=== PATIENT | female | born 2000 | race Caucasian/White ===

== ENCOUNTER 2022-04-20 20:08 | Emergency (ER) | payer MEDICAID ==
--- NOTE | 2022-04-20 20:14 | ERPHSYRPT ---
- History of Present Illness Time Seen by Provider: 04/20/22 20:13 Source: patient Exam Limitations: no limitations Physician History: This is a 21-year-old white female who woke up this morning with a sore throat. Throughout the day the swallowing became more painful. When she looked in the mirror she could see her tonsils swollen on both sides with the right side being worse than the left. She pressed on the right tonsil and there was fibrinous exudate and pus from the site. She therefore came into the emergency department for evaluation management. Patient is not short of breath. She is not having any stridor. She has no chest pain. She has had tonsillitis in the past but it is been several years. She has no known drug allergies. Timing/Duration: today Cough Quality/Degree: no cough Possible Cause: no prior episodes Associated Symptoms: sore throat, No fever, No chills Allergies/Adverse Reactions: No Known Drug Allergies Allergy (Unverified 04/20/22 20:26) Travel Risk - International Travel Have you traveled outside of the country in past 3 weeks: No - Coronavirus Screening Are you exhibiting any of the following symptoms?: No Close contact with a COVID-19 positive Pt in past 14-21 Days: No - Review of Systems Constitutional: No Symptoms Eyes: No Symptoms Ears, Nose, & Throat: Throat Pain (When swallowing), Painful Swallowing Respiratory: No Symptoms Cardiac: No Symptoms Abdominal/Gastrointestinal: No Symptoms Genitourinary Symptoms: No Symptoms Musculoskeletal: No Symptoms Skin: No Symptoms Neurological: No Symptoms Psychological: No Symptoms Endocrine: No Symptoms Hematologic/Lymphatic: No Symptoms Immunological/Allergic: No Symptoms All Other Systems: Reviewed and Negative - Past Medical History Pertinent Past Medical History: Yes - Past Surgical History Past Surgical History: Yes - Nursing Vital Signs Nursing Vital Signs: Initial Vital Signs Temperature 98.5 F 04/20/22 20:27 Pulse Rate 94 H 04/20/22 20:27 Respiratory Rate 18 04/20/22 20:27 Blood Pressure 125/84 04/20/22 20:27 O2 Sat by Pulse Oximetry 98 04/20/22 20:27 Pain Scale Pain Intensity 6 - Physical Exam General Appearance: no apparent distress, alert, anxiety Eye Exam: PERRL/EOMI, eyes nml inspection Ears, Nose, Throat Exam: moist mucous membranes, tonsillar exudate (Bilateral. Right greater swelling than left. Tonsils are not closely approximated) Neck Exam: normal inspection, non-tender, supple, full range of motion Respiratory Exam: normal breath sounds, lungs clear, airway intact, No chest tenderness, No respiratory distress Cardiovascular Exam: regular rate/rhythm, normal heart sounds, normal peripheral pulses Gastrointestinal/Abdomen Exam: No tenderness Pelvic Exam: deferred Rectal Exam: not done Back Exam: normal inspection, normal range of motion, No CVA tenderness, No vertebral tenderness Extremity Exam: normal inspection, normal range of motion, pelvis stable Neurologic Exam: alert, oriented x 3, cooperative, 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, normal mood/affect, nml cerebellar function, nml station & gait, sensation nml Skin Exam: normal color, warm, dry Lymphatic Exam: No adenopathy SpO2 Interpretation: normal O2 Delivery: Room Air - Course Nursing assessment & vital signs reviewed: Yes Ordered Tests: Medication Summary Discontinued Medications Generic Name Dose Route Start Last Admin Trade Name Freq PRN Reason Stop Dose Admin Hydrocodone Bitart/Acetaminophen 10 ml 04/20/22 20:39 04/20/22 20:47 Hydrocodone/Acetaminophen 5 Ml Udcup PO 04/20/22 20:40 10 ml STAT STA Administration Hydrocodone Bitart/Acetaminophen Confirm 04/20/22 20:46 Hydrocodone/Acetaminophen 5 Ml Udcup Administered 04/20/22 20:47 Dose 10 ml .ROUTE .STK-MED ONE Ceftriaxone Sodium 1,000 mg 04/20/22 20:39 04/20/22 20:46 Ceftriaxone Sodium 1000 Mg Inj Vial IM 04/20/22 20:40 1,000 mg STAT ONE Administration Ceftriaxone Sodium Confirm 04/20/22 20:46 Ceftriaxone Sodium 1000 Mg Inj Vial Administered 04/20/22 20:47 Dose 1,000 mg .ROUTE .STK-MED ONE Methylprednisolone Sodium 0 mg 04/20/22 20:39 04/20/22 20:47 Succinate 125 mg/ Sterile IM 04/20/22 20:40 125 mg Water 2 ml STAT ONE Administration Methylprednisolone Sodium Succinate Confirm 04/20/22 20:46 Methylprednis Sod Succ 125 Mg/2 Ml Vial Administered 04/20/22 20:47 Dose 125 mg .ROUTE .STK-MED ONE Sterile Water Confirm 04/20/22 20:45 Water For Injection,Sterile 10 Ml Vial Administered 04/20/22 20:46 Dose 10 ml IJ .STK-MED ONE - Progress Progress: unchanged Air Movement: good Blood Culture(s) Obtained: No Antibiotics given: Yes Counseled pt/family regarding: diagnosis, need for follow-up - Departure Departure Disposition: Home Clinical Impression: Tonsillitis with exudate Condition: Stable Critical Care Time: No Instructions: Sore Throat, Adult (DC) Additional Instructions: Drink plenty of cool liquids. Take your medication as prescribed. Follow-up w ith your primary care physician for further evaluation and management. Prescriptions: Hydrocodone/Acetaminophen [Hydrocodone-Acetamn 7.5-325/15] 10 ml PO Q8H PRN PRN #120 ml MDD 30 ml PRN Reason: Cough Prednisone 10 mg [Deltasone 10 mg] 10 mg PO TID #12 tablet Azithromycin 250 mg [Zithromax 250 MG TABLET] 250 mg PO ZPACK #6 tablet
[2022-04-20 20:41] VITALS: PULSE 94
[2022-04-20] MEDS ORDERED: Sterile H2O 10 ml IJ ONE (20:45)
[2022-04-20] MEDS ORDERED: solu-MEDROL ONE (20:46)
[2022-04-20] MEDS ORDERED: HYDROCODONE-ACETAMIN 2.5-108/5 ML SOLUTION ONE (20:46)
[2022-04-20] MEDS ORDERED: Rocephin 1000 MG INJ ONE (20:46)
[2022-04-20] MEDS: Rocephin 1000 MG INJ IM ONE (20:46)
[2022-04-20] MEDS: HYDROCODONE-ACETAMIN 2.5-108/5 ML SOLUTION PO STA (20:47)
[2022-04-20] MEDS: solu-MEDROL 125 MG, Sterile H2O 10 ml 2 ML IM ONE ×2 (20:47)
[2022-04-20 21:02] VITALS: BP 130/94; O2SAT 99
== END 2022-04-20 21:18 | disposition home or self-care (01) ==
LOC: ED 20:08
DX: J03.90 Acute tonsillitis, unspecified (principal); Z79.891 Long term (current) use of opiate analgesic; Z79.52 Long term (current) use of systemic steroids
CPT/HCPCS: 96372; 99283; J0696; J2930; A9270-GY

== ENCOUNTER 2022-06-10 15:58 | Emergency (ER) | payer MEDICAID, OTHER ==
[2022-06-10 16:19] VITALS: O2SAT 97
[2022-06-10 16:42] LABS: Group A Strep DETECTED (NEGATIVE)
--- NOTE | 2022-06-10 16:52 | ERPHSYRPT ---
- History of Present Illness Source: patient Exam Limitations: no limitations Patient Subjective Stated Complaint: sore throat- Covid symptoms Triage Nursing Assessment: Patient ambulated back to ED and transferred self to bed. Patient A+O X 3. Patient's skin flushed, warm and dry. Patient complains of cough, diarrhea, headache, sore throat, bodyaches and fatigue for 3 days. Patient states she has been exposed to someone with Covid. Physician History: 21 yo wf w cough/coryza/ST/Diarrhea/BAINS wo fever/N/V/D/dysuria/hematuria/. Timing/Duration: gradual onset Severity: mild ENT Location: nose, mouth, throat Prearrival Treatment: no prearrival treatment Modifying Factors: Improves With: nothing Associated Symptoms: cough, headache, nasal congestion/drainage, sore throat, No ear pain (R), No ear pain (L), No fever, No chills, No change in hearing, No dizziness, No drooling, No ear drainage, No facial pain/swelling, No hearing loss, No jaw pain, No malaise, No motion sickness, No epistaxis, No nasal foreign body, No neck pain, No poor fluid intake, No poor solids intake, No ring ing of ears, No swollen glands, No sinus infection, No tooth pain, No difficulty swallowing, No voice change Allergies/Adverse Reactions: No Known Drug Allergies Allergy (Verified 06/10/22 16:11) Hx Tetanus, Diphtheria Vaccination/Date Given: Yes Hx Influenza Vaccination/Date Given: No Hx Pneumococcal Vaccination/Date Given: No Immunizations Up to Date: Yes Travel Risk - International Travel Have you traveled outside of the country in past 3 weeks: No - Coronavirus Screening Are you exhibiting any of the following symptoms?: Yes Symptoms: Cough: New Onset, Headaches/Body Aches/Fatigue Close contact with a COVID-19 positive Pt in past 14-21 Days: Yes - Vaccine Status Have you recieved a Covid-19 vaccination: No - Review of Systems Constitutional: No Symptoms Eyes: No Symptoms Ears, Nose, & Throat: No Symptoms, Nose Pain, Nose Congestion, Throat Pain, Throat Swelling, No Epistaxis, No Mouth Pain, No Mouth Swelling, No Loose Teeth, No Hoarse, No Painful Swallowing, No Snoring, No Stridor Respiratory: No Symptoms, Cough Cardiac: No Symptoms Abdominal/Gastrointestinal: No Symptoms Genitourinary Symptoms: No Symptoms Musculoskeletal: No Symptoms Skin: No Symptoms Neurological: No Symptoms Psychological: No Symptoms Endocrine: No Symptoms Hematologic/Lymphatic: No Symptoms Immunological/Allergic: No Symptoms - Past Medical History Pertinent Past Medical History: Yes Neurological History: Seizures GI Medical History: Hernia - Past Surgical History Past Surgical History: Yes Gastrointestinal: Hernia Repair - Social History Smoking Status: Current every day smoker How long have you smoked: years Exposure to second hand smoke: Yes Drug Use: marijuana Patient Lives Alone: Yes - Female History Hx Last Menstrual Period: currently Hx Now: No - Nursing Vital Signs Nursing Vital Signs: Initial Vital Signs Temperature 99.0 F 06/10/22 16:13 Pulse Rate 96 H 06/10/22 16:13 Respiratory Rate 18 06/10/22 16:13 Blood Pressure 120/81 06/10/22 16:13 O2 Sat by Pulse Oximetry 97 06/10/22 16:13 Pain Scale Pain Intensity 5 WNL - Physical Exam General Appearance: no apparent distress Eye Exam: bilateral eye: normal inspection, PERRL, EOMI Ear Exam: bilateral ear: auricle normal, canal normal, TM normal Nasal Exam: normal inspection Throat Exam: normal, pharynx normal Neck Exam: normal inspection, non-tender, supple, full range of motion, trachea midline, No JVD, No Brudzinski's sign, No Kernig's sign Cardiovascular/Respiratory Exam: normal breath sounds, regular rate/rhythm, heart sounds normal Abdominal Exam: non-tender, soft Neurologic Exam: alert, oriented x 3, cooperative, 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, normal mood/affect, nml cerebellar function, nml station & gait, sensation nml Skin Exam: normal color, warm, dry, No rash SpO2 Interpretation: normal SpO2: 97 O2 Delivery: Room Air - Course Nursing assessment & vital signs reviewed: Yes Lab/Rad Data: Laboratory Results 06/10/22 Range/Units 16:18 Influenza Type A Ag NEGATIVE (NEGATIVE) Influenza Type B Ag NEGATIVE (NEGATIVE) RSV (PCR) NEGATIVE (Negative) SARS-CoV-2 (PCR) POSITIVE A (NEGATIVE) Group A Strep Antibody DETECTED (NEGATIVE) - Departure Departure Disposition: Home Clinical Impression: Strep pharyngitis, COVID-19 Condition: Stable Critical Care Time: No Referrals: HENRIK ATWOOD DO [Primary Care Provider] - Follow up/PCP as directed Instructions: Strep Throat (DC), COVID-19 (DC) Additional Instructions: Quarantine for 5 days Penicillin three times a day for 10 days Paxlovid 3 tabs twice a day for 5 days Follow up with your family MD Return to ER as needed Prescriptions: Nirmatrelvir/Ritonavir [Paxlovid 2X150 mg-100 mg (Eua)] 1 each PO BID 5 Days #30 tablet Penicillin V Potassium 500 mg PO TID 10 Days #30 tablet
[2022-06-10 16:55] LABS: INFLUENZA A NEGATIVE (NEGATIVE); INFLUENZA B NEGATIVE (NEGATIVE); RESPIRATORY SYNCTIAL VIRUS NEGATIVE (Negative)
[2022-06-10 16:58] LABS: SARS-CoV-2 Xpert Express POSITIVE (NEGATIVE)
[2022-06-10 17:11] VITALS: BP 116/77; PULSE 88
== END 2022-06-10 17:10 | disposition home or self-care (01) ==
LOC: ED 15:58
DX: U07.1 COVID-19 (principal); J02.0 Streptococcal pharyngitis; B95.0 Streptococcus, group A, as the cause of diseases classified elsewhere; R05.9 Cough, unspecified; R09.81 Nasal congestion; R19.7 Diarrhea, unspecified; R51.9 Headache, unspecified; Z72.0 Tobacco use; Z28.310 Unvaccinated for COVID-19
CPT/HCPCS: 0241U; 87651; 99282

== ENCOUNTER 2022-08-26 09:40 | Emergency (ER) | payer OTHER ==
[2022-08-26] MEDS ORDERED: TORAdol 30 mg Injection IM ONE (09:57)
[2022-08-26 09:58] VITALS: O2SAT 98
--- NOTE | 2022-08-26 10:02 | ERPHSYRPT ---
- History of Present Illness Time Seen by Provider: 08/26/22 09:58 Historian: patient Exam Limitations: no limitations Patient Subjective Stated Complaint: C/O right flank pain Triage Nursing Assessment: Patient ambulated back to ED. No SOB. She is alert and oriented. No skin alterations noted to right side of back or abdomen. Abdomen is soft and non-tender. Bowel sounds present. Physician History: Pt has right flank pain today with hx of recurring UTIs but none like this before. No abd pain, No discharge, No N or V. No reported fever. taking diet and fluids OK. Abd soft nontender without peritoneal signs or masses. No hx of trauma. Timing/Duration: today Activities at Onset: none Quality: sharpness, throbbing Abdominal Pain Onset Location: flank Pain Radiation: flank Severity of Pain-Max: moderate Severity of Pain-Current: moderate Modifying Factors: Improves With: nothing Associated Symptoms: denies symptoms Previous symptoms: different symptoms Allergies/Adverse Reactions: No Known Drug Allergies Allergy (Verified 08/26/22 09:49) Hx Tetanus, Diphtheria Vaccination/Date Given: Yes Hx Influenza Vaccination/Date Given: No Hx Pneumococcal Vaccination/Date Given: No Immunizations Up to Date: Yes Travel Risk - International Travel Have you traveled outside of the country in past 3 weeks: No - Coronavirus Screening Are you exhibiting any of the following symptoms?: No Close contact with a COVID-19 positive Pt in past 14-21 Days: No - Vaccine Status Have you recieved a Covid-19 vaccination: No - Review of Systems Constitutional: No Fever, No Chills Eyes: No Symptoms Ears, Nose, & Throat: No Symptoms Respiratory: No Cough, No Dyspnea Cardiac: No Chest Pain, No Edema, No Syncope Abdominal/Gastrointestinal: No Abdominal Pain, No Nausea, No Vomiting, No Diarrhea Genitourinary Symptoms: Flank Pain, No Dysuria Musculoskeletal: No Back Pain, No Neck Pain Skin: No Rash Neurological: No Dizziness, No Focal Weakness, No Sensory Changes Psychological: No Symptoms Endocrine: No Symptoms Hematologic/Lymphatic: No Symptoms Immunological/Allergic: No Symptoms All Other Systems: Reviewed and Negative - Past Medical History Pertinent Past Medical History: Yes Neurological History: Seizures Respiratory History: Other GI Medical History: Hernia Other Medical History: COVID-19 in June 2022 - Past Surgical History Past Surgical History: Yes Gastrointestinal: Hernia Repair - Social History Smoking Status: Current every day smoker How long have you smoked: 2 years Exposure to second hand smoke: Yes Drug Use: marijuana Patient Lives Alone: Yes - Female History Hx Last Menstrual Period: 07/31-08/06 Hx Now: No - Nursing Vital Signs Nursing Vital Signs: Initial Vital Signs Temperature 98.2 F 08/26/22 09:50 Pulse Rate 102 H 08/26/22 09:50 Respiratory Rate 18 08/26/22 09:50 Blood Pressure 124/75 08/26/22 09:50 O2 Sat by Pulse Oximetry 98 08/26/22 09:50 Pain Scale Pain Intensity 6 - Physical Exam General Appearance: no apparent distress, alert Eye Exam: PERRL/EOMI, eyes nml inspection Ears, Nose, Throat Exam: normal ENT inspection, pharynx normal, moist mucous membranes Neck Exam: normal inspection, non-tender, supple, full range of motion Respiratory Exam: normal breath sounds, lungs clear, No respiratory distress Cardiovascular Exam: regular rate/rhythm, normal heart sounds Gastrointestinal/Abdomen Exam: soft, No tenderness, No distention, No mass, No guarding Pelvic Exam: deferred Rectal Exam: deferred Back Exam: normal inspection, normal range of motion, No CVA tenderness, No vertebral tenderness Extremity Exam: normal inspection, normal range of motion, pelvis stable Neurologic Exam: alert, oriented x 3, cooperative, normal mood/affect, nml cerebellar function, sensation nml, No motor deficits Skin Exam: normal color, warm, dry SpO2 Interpretation: normal SpO2: 98 O2 Delivery: Room Air - Course Nursing assessment & vital signs reviewed: Yes Ordered Tests: Active Orders 24 hr Category Date Time Status CBC W DIFF Stat Lab 08/26/22 10:05 Completed CMP Stat Lab 08/26/22 10:05 Completed CULTURE,URINE Stat Lab 08/26/22 10:00 Received HCG QUALITATIVE,SERUM Stat Lab 08/26/22 10:05 Completed UA W/RFX CULTURE Stat Lab 08/26/22 10:00 Completed Medication Summary Discontinued Medications Generic Name Dose Route Start Last Admin Trade Name Freq PRN Reason Stop Dose Admin Ketorolac Tromethamine 60 mg 08/26/22 09:57 08/26/22 10:08 Ketorolac Tromethamine 30 Mg/Ml Inj IM 08/26/22 09:58 60 mg STAT ONE Administration Ketorolac Tromethamine Confirm 08/26/22 10:06 Ketorolac Tromethamine 30 Mg/Ml Inj Administered 08/26/22 10:07 Dose 60 mg .ROUTE .K-MED ONE Lab/Rad Data: Laboratory Result Diagrams 08/26/22 10:05 08/26/22 10:05 Laboratory Results 08/26/22 08/26/22 08/26/22 Range/Units 10:05 10:05 10:05 WBC 6.4 (4.0-10.5) x10^3/uL RBC 4.16 (4.1-5.4) x10^6/uL Hgb 12.4 (12.0-16.0) g/dL Hct 38.2 (35-47) % MCV 91.8 (78-100) fL MCH 29.8 (26-32) pg MCHC 32.5 (32-36) g/dL RDW 13.2 (11.5-14.0) % Plt Count 250 (150-450) x10^3/uL MPV 8.7 (7.5-11.0) fL Gran % 91.2 H (36.0-66.0) % Immature Gran % (Auto) 0.2 (0.00-0.4) % Nucleat RBC Rel Count 0.0 (0.00-0.1) % Eos # (Auto) 0.05 (0-0.5) x10^3/uL Immature Gran # (Auto) 0.01 (0.00-0.03) x10^3u/L Absolute Lymphs (auto) 0.43 L (1.0-4.6) x10^3/uL Absolute Monos (auto) 0.05 (0.0-1.3) x10^3/uL Absolute Nucleated RBC 0.00 (0.00-0.01) x10^3u/L Lymphocytes % 6.7 L (24.0-44.0) % Monocytes % 0.8 (0.0-12.0) % Eosinophils % 0.8 (0.00-5.0) % Basophils % 0.3 (0.0-0.4) % Absolute Granulocytes 5.87 (1.4-6.9) x10^3/uL Basophils # 0.02 (0-0.4) x10^3/uL Sodium 138 (137-145) mmol/L Potassium 4.2 (3.5-5.1) mmol/L Chloride 105 (98-107) mmol/L Carbon Dioxide 27 (22-30) mmol/L Anion Gap 10.1 (5-15) MEQ/L BUN 11 (7-17) mg/dL Creatinine 0.64 (0.52-1.04) mg/dL Estimated GFR > 60.0 ML/MIN Glucose 89 (74-106) mg/dL Calcium 8.8 (8.4-10.2) mg/dL Total Bilirubin 0.70 (0.2-1.3) mg/dL AST 21 (14-36) U/L ALT 15 (0-35) U/L Alkaline Phosphatase 65 (38-126) U/L Serum Total Protein 7.4 (6.3-8.2) g/dL Albumin 4.4 (3.5-5.0) g/dL Serum , Qual NEGATIVE (Negative) Urinalys Dipstick Clnc Urine Color (YELLOW) Urine Appearance (CLEAR) Urine pH (5-6) Ur Specific Rudyard (1.005-1.025) POC Urine Protein Conf (Negative) Urine Ketones (NEGATIVE) Urine Nitrite (NEGATIVE) Urine Bilirubin (NEGATIVE) Urine Urobilinogen (0-1) mg/dL Urine Leukocytes (NEGATIVE) Urine WBC (Auto) (0-5) /HPF Urine RBC (Auto) (0-2) /HPF U Epithel Cells (Auto) (FEW) /HPF Urine Bacteria (Auto) (NEGATIVE) /HPF Urine RBC (0-5) Ravindra/ul Urine Mucus (Auto) (NEGATIVE) /HPF Ur Culture Indicated? Urine Glucose (NEGATIVE) mg/dL 08/26/22 Range/Units 10:00 WBC (4.0-10.5) x10^3/uL RBC (4.1-5.4) x10^6/uL Hgb (12.0-16.0) g/dL Hct (35-47) % MCV (78-100) fL MCH (26-32) pg MCHC (32-36) g/dL RDW (11.5-14.0) % Plt Count (150-450) x10^3/uL MPV (7.5-11.0) fL Gran % (36.0-66.0) % Immature Gran % (Auto) (0.00-0.4) % Nucleat RBC Rel Count (0.00-0.1) % Eos # (Auto) (0-0.5) x10^3/uL Immature Gran # (Auto) (0.00-0.03) x10^3u/L Absolute Lymphs (auto) (1.0-4.6) x10^3/uL Absolute Monos (auto) (0.0-1.3) x10^3/uL Absolute Nucleated RBC (0.00-0.01) x10^3u/L Lymphocytes % (24.0-44.0) % Monocytes % (0.0-12.0) % Eosinophils % (0.00-5.0) % Basophils % (0.0-0.4) % Absolute Granulocytes (1.4-6.9) x10^3/uL Basophils # (0-0.4) x10^3/uL Sodium (137-145) mmol/L Potassium (3.5-5.1) mmol/L Chloride (98-107) mmol/L Carbon Dioxide (22-30) mmol/L Anion Gap (5-15) MEQ/L BUN (7-17) mg/dL Creatinine (0.52-1.04) mg/dL Estimated GFR ML/MIN Glucose (74-106) mg/dL Calcium (8.4-10.2) mg/dL Total Bilirubin (0.2-1.3) mg/dL AST (14-36) U/L ALT (0-35) U/L Alkaline Phosphatase (38-126) U/L Serum Total Protein (6.3-8.2) g/dL Albumin (3.5-5.0) g/dL Serum , Qual (Negative) Urinalys Dipstick Clnc MAIN LAB Urine Color YELLOW (YELLOW) Urine Appearance CLOUDY A (CLEAR) Urine pH 7.5 (5-6) Ur Specific Rudyard 1.020 (1.005-1.025) POC Urine Protein Conf 30 A (Negative) Urine Ketones NEGATIVE (NEGATIVE) Urine Nitrite NEGATIVE (NEGATIVE) Urine Bilirubin NEGATIVE (NEGATIVE) Urine Urobilinogen 0.2 (0-1) mg/dL Urine Leukocytes MODERATE A (NEGATIVE) Urine WBC (Auto) >100 A (0-5) /HPF Urine RBC (Auto) 6-10 A (0-2) /HPF U Epithel Cells (Auto) MODERATE (FEW) /HPF Urine Bacteria (Auto) MODERATE A (NEGATIVE) /HPF Urine RBC SMALL A (0-5) Ravindra/ul Urine Mucus (Auto) SLIGHT A (NEGATIVE) /HPF Ur Culture Indicated? YES Urine Glucose NEGATIVE (NEGATIVE) mg/dL - Progress Progress: improved, re-examined Progress Note: 08/26/22 11:58 pt improved after pain med. Counseled pt/family regarding: lab results, diagnosis, need for follow-up - Departure Departure Disposition: Home Clinical Impression: UTI, Possible early pyelo Condition: Good Critical Care Time: No Referrals: HENRIK ATWOOD, [Primary Care Provider] - Follow up/PCP as directed Instructions: Flank Pain, Urinary Tract Infection, Adult (DC) Additional Instructions: As we discussed this could be the start of a more severe kidney infection and th erefore it is important to followup with your Dr. to recheck urine and especially if not improving, vomiting, increased pain fever or other concerns meantime. Prescriptions: Levofloxacin [Levofloxacin 500 MG Tablet] 500 mg PO DAILY #10 tablet
[2022-08-26] MEDS ORDERED: TORAdol 30 mg Injection ONE (10:06)
[2022-08-26 10:10] LABS: Absolute Neutrophil Ct (ANC) 5.87 x10^3/uL (1.4-6.9); Basophil (Absolute #) 0.02 x10^3/uL (0-0.4); Eosinophil % 0.8 % (0.00-5.0); Eosinophil (Absolute #) 0.05 x10^3/uL (0-0.5); Hematocrit 38.2 % (35-47); Hemoglobin 12.4 g/dL (12.0-16.0); Lymphocyte (Absolute #) 0.43 x10^3/uL (1.0-4.6); Lymphocytes % 6.7 % (24.0-44.0); Mean Cell Volume 91.8 fL (78-100); Mean Corpuscular Hemoglobin 29.8 pg (26-32); Mean Corpuscular Hgb Concent. 32.5 g/dL (32-36); Mean Platelet Volume 8.7 fL (7.5-11.0); Monocyte (Absolute #) 0.05 x10^3/uL (0.0-1.3); Monocytes % 0.8 % (0.0-12.0); Neutrophil % 91.2 % (36.0-66.0); Platelet Count 250 x10^3/uL (150-450); Red Blood Count 4.16 x10^6/uL (4.1-5.4); Red Cell Distribution Width 13.2 % (11.5-14.0); White Blood Count 6.4 x10^3/uL (4.0-10.5)
[2022-08-26 10:17] LABS: Appearance CLOUDY (CLEAR); Bacteria MODERATE /HPF (NEGATIVE); Bilirubin NEGATIVE (NEGATIVE); Epithelial Cells MODERATE /HPF (FEW); Glucose NEGATIVE (NEGATIVE); Ketones NEGATIVE (NEGATIVE); Mucus SLIGHT /HPF (NEGATIVE); RBC SMALL Ery/ul (0-5); WBC >100 /HPF (0-5)
[2022-08-26 10:18] LABS: Dipstick done @ ? MAIN LAB; Nitrite NEGATIVE (NEGATIVE); Ph 7.5 (5-6); Protein,Urine Dip 30 (Negative); Urobilinogen 0.2 mg/dL (0-1)
[2022-08-26 10:19] LABS: Urine Cultured Indicated? YES
[2022-08-26 10:47] LABS: ALBUMIN 4.4 g/dL (3.5-5.0); ALKALINE PHOSPHATASE 65 U/L (38-126); ANION GAP 10.1 MEQ/L (5-15); BLOOD UREA NITROGEN 11 mg/dL (7-17); CHLORIDE 105 mmol/L (98-107); Calcium 8.8 mg/dL (8.4-10.2); Carbon Dioxide 27 mmol/L (22-30); Creatinine 1 0.64 mg/dL (0.52-1.04); EST GLOMERULAR FILTRATION RATE > 60.0 ML/MIN; Glucose 89 mg/dL (74-106); Potassium 4.2 mmol/L (3.5-5.1); SGOT/AST 21 U/L (14-36); SGPT/ALT 15 U/L (0-35); SODIUM 138 mmol/L (137-145); Total Protein 7.4 g/dL (6.3-8.2)
[2022-08-26 12:07] VITALS: BP 104/53; PULSE 84
[2022-08-26 13:09] LABS: Slide Review 1 YES
== END 2022-08-26 12:11 | disposition home or self-care (01) ==
LOC: ED 09:40
DX: N39.0 Urinary tract infection, site not specified (principal); R10.9 Unspecified abdominal pain; Z72.0 Tobacco use; Z28.310 Unvaccinated for COVID-19; Z86.16 Personal history of COVID-19
CPT/HCPCS: 36415; 80053; 81015; 84703; 85025; 87077; 87086; 87186; 96372; 99283; J1885